=== PATIENT | female | born 1955 | race Caucasian/White ===

== ENCOUNTER → 2016-12-19 | Outpatient (CLI) | payer BC ==
[~2016-12-19] MED LIST: AMLO-114 PO; AMLO2.5T PO; ASPI81TA28 PO; ATOR-54 PO; CHOL1TAB2 PO; CHOLCAP5 PO; CLR10 PO; CPR500 PO; ERYOPO OPR; ESCI1TAB9 PO; LEVO75TA PO; LPT/20 PO; LXP10 PO; METO25TA3 PO; NAPR375T3 PO; OMEG10007 PO; OXYC5TAB PO; PANT40TA PO; PRT/40 PO; SNG10 PO; SYN75 PO
== END | disposition home or self-care (01) ==
LOC: C.LABBFT 12:21
PROVIDERS: ATTEND Internal Medicine
DX: E78.00 Pure hypercholesterolemia, unspecified (principal)

== ENCOUNTER → 2017-01-16 | Outpatient (CLI) | payer BC ==
[~2017-01-16] MED LIST changes: +LORA10CA10 PO; +NAPR-1221 PO; -NAPR375T3 PO; +PANT40TA2 PO; -PRT/40 PO
--- NOTE | 2017-01-16 09:16 | DIAGNOSTIC IMAGING REPORT ---
RIGHT KNEE 1 OR 2 VIEWS ROUTINE CLINICAL HISTORY: Right knee pain COMPARISON: None. DISCUSSION: The bones are mildly osteopenic. No fractures or dislocations are visualized. There are no erosive or destructive changes. The joint spaces appear relatively well preserved for age. IMPRESSION: No fractures or destructive lesions are visualized. Electronically signed by: Surya Bearden M.D. 01/16/2017 9:14 AM Dictated Date/Time: 01/16/2017 9:14 AM
== END | disposition home or self-care (01) ==
LOC: C.RAD1850 08:54
PROVIDERS: ATTEND Nurse Practitioner
DX: M25.561 Pain in right knee (principal)

== ENCOUNTER 2017-02-13 17:26 | Emergency (ER) | payer BC ==
[~2017-02-13] VITALS: Ht 152.4 cm; Wt 61.4 kg
[~2017-02-13 17:26] MED LIST changes: -AMLO-114 PO; -CHOLCAP5 PO; -ERYOPO OPR; -LORA10CA10 PO; -LPT/20 PO; -LXP10 PO; -METO25TA3 PO; -NAPR-1221 PO; -OMEG10007 PO; -PANT40TA2 PO; -SNG10 PO; -SYN75 PO
[2017-02-13 17:30] VITALS: TEMP 36.8; Ht 152.4 cm; Wt 61.4 kg
[2017-02-13] MEDS ORDERED: PANT40TA2 PO (18:05)
[2017-02-13] MEDS ORDERED: METO25TA3 PO (18:05)
[2017-02-13] MEDS ORDERED: NAPR-1221 PO (18:05)
[2017-02-13] MEDS ORDERED: SNG10 PO (18:05)
[2017-02-13] MEDS ORDERED: SYN75 PO (18:05)
[2017-02-13] MEDS ORDERED: LXP10 PO (18:05)
[2017-02-13] MEDS ORDERED: LPT/20 PO (18:07)
[2017-02-13] MEDS ORDERED: CHOLCAP5 PO (18:07)
--- NOTE | 2017-02-13 18:11 | EMERGENCY ROOM VISIT NOTE ---
ED Visit Note First contact with patient: 17:38 CHIEF COMPLAINT: Bilateral red, irritated eye HISTORY OF PRESENT ILLNESS: This 61-year-old female presents to the emergency department with complaining of redness in the bilateral eyes which has been ongoing for several weeks. Mild constant irritation, itching, denies pain. There is watery and sticky discharge from both eyes and the lids are crusted in the morning. Slight blurring of vision that clears with blinking. The patient wears corrective lenses but does not wear contacts. There is no known trauma to the eye. The patient has chronic allergy symptoms of nasal congestion, runny nose, sneezing, scratchy throat. The symptoms have been worse over the past month. The patient does not have a foreign body sensation. No headache, rash, nausea or vomiting. REVIEW OF SYSTEMS: A 6 system review of systems was completed with positives and pertinent negatives in the HPI. PHYSICAL EXAM: Vital Signs: Reviewed Nurse's notes, Temperature within normal limits. GENERAL: Awake and alert, in no acute distress, well-developed, well- nurished. SKIN: Warm, dry. No cyanosis. No petechia. EYES: Both pupils are equal round and reactive to light and accomadation, EOMs intact. There is watery discharge in the both eyes and moderate injection. There is no foreign body of the eyelid with lid eversion. Fundoscopic exam reveals no hemorrages, papiledema, or other abnormalities. No foreign body on the cornea, no hyphema. There is uptake of flourescein visible with UV light to the right cornea at approximately 7:00 just below the iris, consistent with corneal abrasion. No corneal ulcer. Visual Accuity is 20/40 right and 20/25 left with correction. EMERGENCY DEPARTMENT COURSE: I examined the patient. A funduscopic and wood's lamp exam was performed and is as described above. 1 inch of erythromycin ointment placed in the right eye and the patient was instructed as noted below. The patient was discharged home in good condition. DIAGNOSIS: Acute on chronic bilateral allergic conjunctivitis with right corneal abrasion Problem List Medical Problems: (1) Foot fracture, right Status: Resolved (2) HTN (hypertension) Status: Chronic Surgical Problems: (1) Previous section Status: Resolved Current/Historical Medications Scheduled Aspirin (Aspirin Ec), 81 MG PO HS Atorvastatin (Atorvastatin Calcium), 20 MG PO HS Cholecalciferol (Vitamin D3), 5,000 INTER.UNIT PO HS Erythromycin Opth (Erythromycin Opth), 1 INCH OPR Q2H Escitalopram Oxalate (Escitalopram Oxalate), 10 MG PO HS Levothyroxine Sodium (Synthroid), 75 MG PO HS Metoprolol Succinate (Toprol Xl), 25 MG PO HS Montelukast Sod (Montelukast Sodium), 10 MG PO HS Pantoprazole (Pantoprazole Sodium), 40 MG PO HS Scheduled PRN Naproxen (Naproxen), 375 MG PO BID PRN for Pain Allergies Coded Allergies: Penicillins (Verified Allergy, Intermediate, ANAPHYLAXIS, 10/10/15) Vital Signs Date Time Temp Pulse Resp B/P Pulse Ox O2 Delivery O2 Flow Rate FiO2 02/13/17 19:05 67 18 215/100 98 02/13/17 17:30 36.8 72 20 210/97 98 Room Air Departure Information Impression Primary Impression: Allergic conjunctivitis, bilateral Additional Impression: Corneal abrasion, right Dispostion Home / Self-Care Condition GOOD Prescriptions Erythromycin Opth (ERYTHROMYCIN OPTH) 12 Appln/3.5 Gm Oint 1 INCH OPR Q2H for 7 Days, #1 TUBE Prov: Gogo Veronica CRNP 02/13/17 Referrals Jose Lewis M.D. (PCP) Patient Instructions ED Allergic Conjunctivitis, ED Eye Injury Corneal Abrasion, [facility] Additional Instructions You have been treated in the Emergency Department today for your Corneal Abrasion. You have been prescribed Erythromycin Opthalmic ointment. This is an antibiotic ointment which will help prevent an infection from developing in your affected eye. You should apply a 1 cm ribbon of the ointment to the lower part of the affected eye up to 6 times per day for the next 7 days. DO NOT rub your eyes, as this can increase irritation and and risk of scratching your cornea again. You can use cool compresses to your eyes for comfort as much as needed. For pain control, you can use the following efki-bln-[id number] medicines (if >12 yo): - Regular strength (325mg/tab) Tylenol (acetaminophen) 2 tabs every 4-6 hours as needed. Do not exceed 12 tablets in a 24 hour period. Avoid taking more than 4 grams (4000 mg) of Tylenol per day. This includes any other sources of acetaminophen you may take on a regular basis. - Regular strength (200 mg/tab) Advil (ibuprofen) 1-2 tabs every 4-6 hours as needed. Do not exceed a dose of 3200 mg per day. You should relax in a quiet, dark place for the rest of the day. You should wear sunglasses while outside for the next few days until your eyes are not as sensitive to the light. You should continue using the eyedrops prescribed by your PCP to help manage your allergy symptoms. You should schedule a follow-up appointment in 2-3 days with your Primary Care Provider or established Eye Doctor (General Clerk) for further evaluation and treatment of your Corneal Abrasion. Return to the Emergency Department if your current symptoms worsen despite treatment course outlined above, or if you develop any of the following symptoms : intractable pain, visual disturbances, loss of vision, increased redness, swelling, drainage, or if you develop a fever. Problem Qualifiers Additional Impression: Corneal abrasion, right Encounter type: initial encounter Qualified Codes: S05.01XA - Injury of conjunctiva and corneal abrasion without foreign body, right eye, initial encounter
[2017-02-13] MEDS ORDERED: ERYTHROMYCIN OP OINT 1 GM PKT OP SCH (19:00)
[2017-02-13 19:05] VITALS: BP 215/100; PULSE 67; O2SAT 98
[2017-02-13] MEDS ORDERED: ERYOPO OPR (19:29)
[2017-05-30] MEDS ORDERED: OMEG10007 PO (07:44)
[2017-05-30] MEDS ORDERED: AMLO-114 PO (07:44)
[2017-08-30] MEDS ORDERED: LORA10CA10 PO (13:30)
== END 2017-02-13 19:32 | disposition home or self-care (01) ==
LOC: C.EDB 17:29 → C.EDD 19:32
DX: H10.13 Acute atopic conjunctivitis, bilateral (principal); S05.01XA Injury of conjunctiva and corneal abrasion without foreign body, right eye, initial encounter; X58.XXXA Exposure to other specified factors, initial encounter; I10 Essential (primary) hypertension; Z79.82 Long term (current) use of aspirin; Z79.899 Other long term (current) drug therapy

== ENCOUNTER → 2017-04-05 | Outpatient (CLI) | payer BC ==
[~2017-04-05] MED LIST changes: +AMLO-114 PO; -AMLO2.5T PO; -ATOR-54 PO; -CHOL1TAB2 PO; +CHOLCAP5 PO; -CLR10 PO; -CPR500 PO; +ERYOPO OPR; -ESCI1TAB9 PO; -LEVO75TA PO; +LORA10CA10 PO; +LPT/20 PO; +LXP10 PO; +METO25TA3 PO; +NAPR-1221 PO; +OMEG10007 PO; -OXYC5TAB PO; -PANT40TA PO; +PANT40TA2 PO; +SNG10 PO; +SYN75 PO
== END ==
LOC: C.PAPS 08:15
PROVIDERS: ATTEND Physician Assistant
DX: Z01.419 Encounter for gynecological examination (general) (routine) without abnormal findings (principal)

== ENCOUNTER → 2017-05-30 | Day surgery (SDC) | payer BC ==
[~2017-05-30] VITALS: Ht 152.4 cm; Wt 61.4 kg
[~2017-05-30] MED LIST changes: +ATROPINE SULFATE 0.1 MG/ML 5ML SYR IV PRN; +DEXAMETHASONE SOD INJ 4 MG/ML VIAL ONE; +FENTANYL CITRATE INJ 50 MCG/1 ML 2 ML VIAL IV PRN; +FENTANYL CITRATE INJ 50 MCG/1 ML 2 ML VIAL ONE; +IBUPROFEN 600 MG TAB PO PRN; +KETOROLAC TROMETHAMINE 30 MG/ML VIAL IV. PRN; +LABETALOL HCL IV 5 MG/ML 20ML IV PRN; +LACTATED RINGER'S 1000ML 1,000 ML IV SCH; +LIDOCAINE HCL 2% 2 ML VIAL (20MG/ML) ONE; -LORA10CA10 PO; +METOCLOPRAMIDE HCL INJ 5 MG/ML 2 ML VIAL IV PRN; +MIDAZOLAM HCL 1 MG/ML 2ML VIAL ONE; -NAPR-1221 PO; +NAPR375T3 PO; +ONDANSETRON INJ 2 MG/ML 2 ML VIAL IV PRN; +ONDANSETRON INJ 2 MG/ML 2 ML VIAL ONE; +OXYCODONE/ACETAMINOPHEN 5-325 TAB PO PRN; -PANT40TA2 PO; +PROPOFOL IV EMULSION 10 MG/ML 20 ML VIAL IV ONE; +PRT/40 PO; +SODIUM CHLORIDE 0.9% 1000ML 1,000 ML IV SCH
[2017-05-30 07:44] VITALS: Ht 152.4 cm; Wt 61.4 kg
--- NOTE | 2017-05-30 12:58 | History & Physical Bridge - SC ---
H&P Re-Evaluation Bridge Note: I have examined the patient, reviewed the History & Physical and in the interval since the performance of the History & Physical I have noted the following changes of clinical significance: No changes noted
--- NOTE | 2017-05-30 13:47 | Discharge Instructions-SurgCtr ---
Discharge Instructions Date of Service May 30, 2017. Visit Reason for Visit: Endometrial Polyp Discharge Discharge Diagnosis / Problem: D&C Hysteroscopy Polypectomy Discharge Goals Goal(s): Specific goals Activity Recommendations Activity Limitations: per Instructions/Follow-up section Anesthesia . Post Anesthesia Instructions: If you have had General Anesthesia or IV Sedation: * Do not drive today. * Resume driving when surgeon permits. * Do not make important decisions or sign legal documents today. * Call surgeon for: 1. Temperature elevations greater than 101 degrees F. 2. Uncontrollable pain. 3. Excessive bleeding. 4. Persistent nausea and vomiting. 5. Medication intolerance (nausea, vomiting or rash). * For nausea and vomiting use only clear liquids such as: tea, soda, bouillon until nausea subsides, then gradually increase diet as tolerated. * If you have any concerns or questions, call your surgeon's office. If physician is unavailable and it is an emergency, call 911 or go to the nearest emergency room. . Instructions / Follow-Up Instructions / Follow-Up ACTIVITY RECOMMENDATIONS: * Avoid tampons, douching, hot tubs, pools, and intercourse until bleeding has stopped. * May shower as usual. * No strenuous activity for 24-48 hours. After 24-48 hours, you may do anything you feel like doing (driving and sports are okay). SPECIAL CARE INSTRUCTIONS: Special Diet: * Mild nausea may occur in the immediate post-operative period. * Take clear liquids such as tea, cola or bouillon until all nausea has subsided; you may then resume your normal diet. Special Care: * Light bleeding and vaginal spotting can last from a few days to 3-4 weeks. Call your doctor if bleeding becomes heavier than the heaviest part of your period. * Check your temperature twice a day for one week. If it goes above 100.4 degrees Fahrenheit (38.0 Celsius), notify your doctor. * Call your doctor's office for an appointment for 6 weeks after your surgery. FOLLOW-UP VISIT: Call your doctor's office for an appointment for 6 weeks after your surgery. Diet Recommendations Home Diet: resume previous diet Procedures Procedures Performed: Dilatation And Curettage, Hysteroscopy, Polypectomy Pending Studies Studies pending at discharge: no Medical Emergencies . Who to Call and When: Medical Emergencies: If at any time you feel your situation is an emergency, please call 911 immediately. . Non-Emergent Contact Non-Emergency issues call your: Primary Care Provider . . "Provider Documentation" section prepared by Joanie Perrin. .
--- NOTE | 2017-05-30 14:42 | Anesthesia Progress Nt - [facility] ---
Anesthesia Post Op Note Date & Time May 30, 2017 at 14:42 Vital Signs Pain Intensity: 0 Vital Signs Past 12 Hours Date Time Temp Pulse Resp B/P (MAP) Pulse Ox O2 Delivery O2 Flow Rate FiO2 05/30/17 14:36 57 16 05/30/17 14:36 56 16 92 05/30/17 14:35 133/75 05/30/17 14:31 60 12 05/30/17 14:31 60 12 99 05/30/17 14:30 145/88 05/30/17 14:30 36.4 59 12 145/88 99 Room Air 05/30/17 14:26 55 10 97 05/30/17 14:26 55 10 05/30/17 14:25 156/82 05/30/17 14:24 57 13 97 05/30/17 14:24 57 13 05/30/17 14:20 145/69 05/30/17 14:19 55 12 97 05/30/17 14:19 55 12 05/30/17 14:15 136/73 05/30/17 14:14 54 10 98 05/30/17 14:14 55 10 05/30/17 14:10 129/69 05/30/17 14:09 55 10 96 05/30/17 14:09 55 10 05/30/17 14:08 55 11 96 05/30/17 14:08 55 11 05/30/17 14:05 138/70 05/30/17 14:03 57 11 05/30/17 14:03 57 11 95 05/30/17 14:00 140/75 05/30/17 13:58 59 12 95 05/30/17 13:58 58 12 05/30/17 13:55 179/82 05/30/17 13:54 164/113 05/30/17 13:53 56 98 05/30/17 13:53 56 05/30/17 13:53 36.0 58 12 179/82 97 Diffusion Mask 6 05/30/17 12:05 36.3 53 16 135/83 (100) 98 Room Air Notes Mental Status: alert / awake / arousable, participated in evaluation Pt Amnestic to Procedure: Yes Nausea / Vomiting: adequately controlled Pain: adequately controlled Airway Patency, RR, SpO2: stable & adequate BP & HR: stable & adequate Hydration State: stable & adequate Anesthetic Complications: no major complications apparent
[2017-05-30 14:45] VITALS: TEMP 36.8
--- NOTE | 2017-05-30 15:00 | OPERATIVE REPORT ---
DATE OF OPERATION: 05/30/2017 PREOPERATIVE DIAGNOSIS: Thickened endometrium, incidental finding. POSTOPERATIVE DIAGNOSIS: Likely polyp. PROCEDURE: D&C, hysteroscopy with polypectomy. SURGEON: Dr. Joanie Perrin. CUT FILE CLERK: None. ESTIMATED BLOOD LOSS: 10 mL. COMPLICATIONS: None. DISPOSITION: Stable to recovery. DESCRIPTION OF PROCEDURE: Nora is a 62-year-old female who had a thickened endometrium identified as an incidental finding on imaging being done for other reasons. She was counseled on her options and elected for a D&C hysteroscopy to both sample and to remove the lining. She was placed on the table in the dorsal lithotomy position with candy-cane stirrups, prepped and draped in standard sterile fashion and a hard time-out was taken prior to proceeding. The bladder was emptied of urine via straight catheterization. Weighted and Zamora speculum were then placed and the cervix was identified. It was noted to be very petite, but normal in appearance. The cervix was serially dilated to allow passage of a 5-mm hysteroscope, which was then gently introduced to the fundus. Ostia were seen bilaterally and the cavity was essentially normal; however, at the lower uterine segment on the posterior wall, there was a polypoid structure that had a somewhat yellowish and calcified appearance with some blood vessels coursing through it. The scope was then withdrawn. Sharp curettage was carried out on all villalobos of the uterus. Minimal endometrial curettings were retrieved. The scope was reintroduced and the aforementioned posteriorly-arising polypoid mass was seen to be detached and bouncing around freely within the endometrial cavity in the hysteroscopic fluid. The scope was then removed and polyp forceps were used to grasp and retrieve this, which was sent as a separate specimen labeled polyp. The scope was then reintroduced and the cavity both endometrial and endocervical was seen to be smooth and clean. The procedure was then brought to completion with all instruments being removed and the patient was transferred in stable condition to the recovery room. I attest to the content of the Intraoperative Record and any orders documented therein. Any exceptions are noted below. [facility]
[2017-05-30 15:14] VITALS: BP 128/74; PULSE 51; O2SAT 95
== END | disposition home or self-care (01) ==
LOC: X.SURG 11:32
PROVIDERS: ATTEND Obstetrics & Gynecology
DX: N84.0 Polyp of corpus uteri (principal); F32.9 Major depressive disorder, single episode, unspecified; K21.9 Gastro-esophageal reflux disease without esophagitis; E78.00 Pure hypercholesterolemia, unspecified; I10 Essential (primary) hypertension; E03.9 Hypothyroidism, unspecified; M81.0 Age-related osteoporosis without current pathological fracture; M19.90 Unspecified osteoarthritis, unspecified site; Z82.49 Family history of ischemic heart disease and other diseases of the circulatory system

== ENCOUNTER → 2017-06-12 | Outpatient (CLI) | payer BC ==
[~2017-06-12] MED LIST changes: -ATROPINE SULFATE 0.1 MG/ML 5ML SYR IV PRN; -DEXAMETHASONE SOD INJ 4 MG/ML VIAL ONE; -ERYOPO OPR; -FENTANYL CITRATE INJ 50 MCG/1 ML 2 ML VIAL IV PRN; -FENTANYL CITRATE INJ 50 MCG/1 ML 2 ML VIAL ONE; -IBUPROFEN 600 MG TAB PO PRN; -KETOROLAC TROMETHAMINE 30 MG/ML VIAL IV. PRN; -LABETALOL HCL IV 5 MG/ML 20ML IV PRN; -LACTATED RINGER'S 1000ML 1,000 ML IV SCH; -LIDOCAINE HCL 2% 2 ML VIAL (20MG/ML) ONE; -METOCLOPRAMIDE HCL INJ 5 MG/ML 2 ML VIAL IV PRN; -MIDAZOLAM HCL 1 MG/ML 2ML VIAL ONE; -ONDANSETRON INJ 2 MG/ML 2 ML VIAL IV PRN; -ONDANSETRON INJ 2 MG/ML 2 ML VIAL ONE; -OXYCODONE/ACETAMINOPHEN 5-325 TAB PO PRN; -PROPOFOL IV EMULSION 10 MG/ML 20 ML VIAL IV ONE; -SODIUM CHLORIDE 0.9% 1000ML 1,000 ML IV SCH
--- NOTE | 2017-06-12 14:20 | DIAGNOSTIC IMAGING REPORT ---
LEFT FINGER(S) MIN 2 VIEWS ROUTINE HISTORY: 62 years-old Female L08.9 Infected finger with concern for possible osteomyelitis. COMPARISON: None available TECHNIQUE: 3 views of the fingers with attention to the left third fourth digit. FINDINGS: The bones are moderately demineralized. Mild degenerative changes are seen within the metacarpal phalangeal and interphalangeal joints. No acute fracture, dislocation or erosive changes are identified. Negative for opaque foreign body. There is mild soft tissue swelling of the fourth digit. IMPRESSION: 1. Mild soft tissue swelling of the fourth digit without acute bony abnormality. No erosive changes to suggest acute osteomyelitis. If of further clinical concern, a follow-up MRI may be considered. 2. Background osteopenia. The above report was generated using voice recognition software. It may contain grammatical, syntax or spelling errors. Electronically signed by: Felice Rogers M.D. 06/12/2017 2:19 PM Dictated Date/Time: 06/12/2017 2:16 PM
== END | disposition home or self-care (01) ==
LOC: C.RAD1850 14:06
PROVIDERS: ATTEND Nurse Practitioner
DX: L08.9 Local infection of the skin and subcutaneous tissue, unspecified (principal); M85.80 Other specified disorders of bone density and structure, unspecified site

== ENCOUNTER → 2017-07-09 | Outpatient (CLI) | payer BC ==
[2017-07-09 17:44] LABS: BLOOD UREA NITROGEN 13 mg/dl (7-18); BUN/CREATININE RATIO 15.8 (10-20); GLUCOSE 107 mg/dl (70-99)
[2017-07-09 17:45] LABS: ALT/SGPT 22 U/L (12-78); AST/SGOT 16 U/L (15-37); CALCIUM 8.6 mg/dl (8.5-10.1); CARBON DIOXIDE 25 mmol/L (21-32); CHLORIDE 110 mmol/L (98-107); POTASSIUM 3.2 mmol/L (3.5-5.1); SODIUM 144 mmol/L (136-145)
[2017-07-09 17:56] LABS: ALB/GLOB RATIO 1.2 (0.9-2); ALKALINE PHOSPHATASE 99 U/L (45-117); CHOLESTEROL 185 mg/dl (0-200); CHOLESTEROL/HDL RATIO 3.9; HDL CHOLESTEROL 47 mg/dl; LDL CHOLESTEROL CALCULATED 105 mg/dl; TRIGLYCERIDES 163 mg/dl (0-150); VERY LOW DENSITY LIPOPROT CALC 33 mg/dl
== END | disposition home or self-care (01) ==
LOC: C.LABBFT 12:09
PROVIDERS: ATTEND Physician Assistant Medical
DX: E78.00 Pure hypercholesterolemia, unspecified (principal); E03.9 Hypothyroidism, unspecified

== ENCOUNTER → 2017-07-16 | Outpatient (CLI) | payer BC ==
[~2017-07-16] MED LIST changes: +GADAVIST IV PRN
--- NOTE | 2017-07-16 13:15 | DIAGNOSTIC IMAGING REPORT ---
L UPPER EXT NONJOINT COMBO CLINICAL HISTORY: 62 years-old Female presenting with infected fourth digit. TECHNIQUE: Multisequence, multiplanar MR imaging of the left fingers was performed before and after the administration of intravenous contrast. IV contrast: 6.2 mL of Gadavist. COMPARISON: Correlation made to plain radiographs of the left fingers from 06/12/2017. FINDINGS: Localizer images: Unremarkable. T2 hyperintense, T1 hypointense signal intensity along the base of the distal phalanx of the fourth finger. Postcontrast imaging demonstrates intramedullary enhancement. The adjacent distal interphalangeal joint does not demonstrate increased fluid. No bony edema in the head of the middle phalanx of the fourth finger the adjacent tendons and ligamentous structures are intact. Remaining structures of the hand are within normal limits. IMPRESSION: Findings consistent with osteomyelitis at the base of the distal phalanx of the fourth finger. No convincing evidence of septic arthritis of the distal interphalangeal joint at this time. Electronically signed by: Jack Peters M.D. 07/16/2017 1:14 PM Dictated Date/Time: 07/16/2017 1:10 PM
== END | disposition home or self-care (01) ==
LOC: C.MRI 10:59
PROVIDERS: ATTEND Physician Assistant Medical
DX: L08.9 Local infection of the skin and subcutaneous tissue, unspecified (principal); R93.7 Abnormal findings on diagnostic imaging of other parts of musculoskeletal system

== ENCOUNTER → 2017-08-31 | Day surgery (SDC) | payer BC ==
[2017-08-17 14:56] VITALS: BMI 26.0
[2017-08-30 13:32] VITALS: Ht 152.4 cm; Wt 61.4 kg
[~2017-08-31] VITALS: Ht 152.4 cm; Wt 61.4 kg
[~2017-08-31] MED LIST changes: +ATROPINE SULFATE 0.1 MG/ML 5ML SYR IV PRN; +EpHEDrine SULFATE INJ 50 MG/ML AMP IV PRN; -GADAVIST IV PRN; +LIDOCAINE HCL 2% 2 ML VIAL (20MG/ML) ONE; +LORA10CA10 PO; +MIDAZOLAM HCL 1 MG/ML 2ML VIAL ONE; -NAPR375T3 PO; -OMEG10007 PO; +ONDANSETRON INJ 2 MG/ML 2 ML VIAL ONE; +PANT40TA2 PO; +PROPOFOL IV EMULSION 10 MG/ML 20 ML VIAL IV ONE; -PRT/40 PO; -SNG10 PO; +SODIUM CHLORIDE 0.9% 500ML 500 ML IV ONE
--- NOTE | 2017-08-31 15:26 | Endo History and Physical ---
History & Physical Date of Service: Aug 31, 2017. Chief Complaint: Screening Referring Physician: Jose Lewis History of Present Illness screening colon Past Medical History Fractures, Syncopal Episodes, Hypertension, Thyroid Disease Past Surgical History Hx Cardiac Surgery: No Hx Internal Defibrillator: No Hx Pacemaker: No Hx Abdominal Surgery: Yes ( X 2, D&C) Hx of Implantable Prosthesis: No Hx Post-Op Nausea and Vomiting: No Hx Cancer Surgery: No Hx Thoracic Surgery: No Hx Orthopedic: Yes (REPAIR OF FX RIGHT FOOT) Hx Urinary Tract Surgery: No Family History None Social History Smoking Status: Never Smoker Hx Substance Use: No Hx Alcohol Use: Yes (RARELY) Allergies Coded Allergies: Penicillins (Verified Allergy, Intermediate, INCREASED FEELING SICK, ) Current Medications Reported Home Medications Medications Dose Route/Sig Max Daily Dose Days Date Category Loratadine 10 Mg Cap 1 Cap PO QAM 08/30/17 Reported Norvasc (Amlodipine Besylate) 10 Mg Tab 5 Mg PO HS 05/30/17 Reported Atorvastatin Calcium (Atorvastatin) 20 Mg Tab 20 Mg PO HS 02/13/17 Reported Vitamin D3 (Cholecalciferol) 5,000 Unit Cap 5,000 Inter.unit PO HS 02/13/17 Reported Escitalopram Oxalate 10 Mg Tab 10 Mg PO HS 02/13/17 Reported Toprol Xl (Metoprolol Succinate) 25 Mg Tabcr 25 Mg PO HS 02/13/17 Reported Pantoprazole Sodium (Pantoprazole) 40 Mg Tab 40 Mg PO HS 02/13/17 Reported Synthroid (Levothyroxine Sodium) 75 Mcg Tab 75 Mg PO HS 02/13/17 Reported Aspirin Ec (Aspirin) 81 Mg Tab 81 Mg PO HS 10/10/15 Reported Vital Signs Weight (Kilograms): 61.36 Height (Feet): 5 Height (Inches): 0 Date Time Temp Pulse Resp B/P (MAP) Pulse Ox O2 Delivery O2 Flow Rate FiO2 08/31/17 13:21 36.5 59 18 176/85 (115) 98 Room Air Physical Exam General Appearance: WD/WN, no apparent distress Respiratory/Chest: Auscultation: breath sounds normal Cardiovascular: Heart Auscultation: RRR Abdomen: Bowel Sounds: normal Inspection & Palpation: soft, non-distended, no tenderness, guarding & rebound Assessment and Plan screening colon; no FH of CRC consent obtained
--- NOTE | 2017-08-31 16:04 | Discharge Instructions ---
Endoscopy Patient Instructions Date / Procedure(s) Performed Aug 31, 2017. Colonoscopy Allergy Information Coded Allergies: Penicillins (Verified Allergy, Intermediate, INCREASED FEELING SICK, ) Discharge Date / Findings Aug 31, 2017. normal colon/ melanosis coli Medication Instructions Restart Stopped Medication(s): Reported Home Medications Medications Dose Route/Sig Max Daily Dose Days Date Category Loratadine 10 Mg Cap 1 Cap PO QAM 08/30/17 Reported Norvasc (Amlodipine Besylate) 10 Mg Tab 5 Mg PO HS 05/30/17 Reported Atorvastatin Calcium (Atorvastatin) 20 Mg Tab 20 Mg PO HS 02/13/17 Reported Vitamin D3 (Cholecalciferol) 5,000 Unit Cap 5,000 Inter.unit PO HS 02/13/17 Reported Escitalopram Oxalate 10 Mg Tab 10 Mg PO HS 02/13/17 Reported Toprol Xl (Metoprolol Succinate) 25 Mg Tabcr 25 Mg PO HS 02/13/17 Reported Pantoprazole Sodium (Pantoprazole) 40 Mg Tab 40 Mg PO HS 02/13/17 Reported Synthroid (Levothyroxine Sodium) 75 Mcg Tab 75 Mg PO HS 02/13/17 Reported Aspirin Ec (Aspirin) 81 Mg Tab 81 Mg PO HS 10/10/15 Reported Reported Home Medications Medications Dose Route/Sig Max Daily Dose Days Date Category Loratadine 10 Mg Cap 1 Cap PO QAM 08/30/17 Reported Norvasc (Amlodipine Besylate) 10 Mg Tab 5 Mg PO HS 05/30/17 Reported Atorvastatin Calcium (Atorvastatin) 20 Mg Tab 20 Mg PO HS 02/13/17 Reported Vitamin D3 (Cholecalciferol) 5,000 Unit Cap 5,000 Inter.unit PO HS 02/13/17 Reported Escitalopram Oxalate 10 Mg Tab 10 Mg PO HS 02/13/17 Reported Toprol Xl (Metoprolol Succinate) 25 Mg Tabcr 25 Mg PO HS 02/13/17 Reported Pantoprazole Sodium (Pantoprazole) 40 Mg Tab 40 Mg PO HS 02/13/17 Reported Synthroid (Levothyroxine Sodium) 75 Mcg Tab 75 Mg PO HS 02/13/17 Reported Aspirin Ec (Aspirin) 81 Mg Tab 81 Mg PO HS 10/10/15 Reported Provider Instructions Activity Restrictions - No exercising or heavy lifting for 24 hours. - Do not drink alcohol the day of the procedure. - Do not drive a car or operate machinery until the day after the procedure. - Do not make any important decisions or sign important papers in 24 hours after the procedure. Following Day: - Return to full activity which may include returning to work/school. Diet Start your diet with liquids and light foods (jello, soup, juice, toast). Then eat your usual diet if not nauseated. Treatment For Common After Affects For mild abdominal pain, bloating, or excessive gas: - Rest - Eat lightly - Lie on right side Follow-Up Information Follow-up with Jose Lewis as scheduled Anesthesia Information What You Should Know You have had a procedure that required some medicine to reduce anxiety and discomfort. This treatment is called moderate sedation. After receiving the treatment, you may be sleepy, but you will be able to breathe on your own. The effects of the treatment may last for several hours. Follow these instructions along with Activity/Diet recommendations noted above: * Do NOT do anything where dizziness or clumsiness would be dangerous. * Rest quietly at home today, then you can be up and about tomorrow. * Have a responsible person stay with you the rest of today. * You may have had an I.V. today. If so, you may take the dressing off later today. Recommendations Call your doctor if: * Trouble breathing * Continuous vomiting for more than 24 hours * Temperature above 101 degrees * Severe abdominal pain or bloating * Pain not relieved by pain medicine ordered * There is increased drainage or redness from any incision * A large amount of rectal bleeding greater than 2-3 tablespoons. (If you had a polyp/s removed or have hemorrhoids, a small amount of blood - from the rectum is to be expected.) * You have any unanswered questions or concerns. IN THE EVENT OF A SERIOUS EMERGENCY, GO TO THE NEAREST EMERGENCY ROOM Your discharge instructions were prepared by provider Rolf Dickerson. Patient Instructions Signature Page Nora Keita Patient (or Guardian) Signature/Date: I have read and understand the instructions given to me by my caregivers. Caregiver/RN/Doctor Signature/Date: The above-named patient and/or guardian has received patient instructions on this date. + Original Patient Signature Page (only) stays with chart. Please make copy for patient.
--- NOTE | 2017-08-31 16:07 | GI REPORT ---
Procedure Date: 08/31/2017 3:30 PM Procedure: Colonoscopy Indications: Screening for colorectal malignant neoplasm Medicines: Propofol per Anesthesia Complications: No immediate complications. Estimated blood loss: None. Estimated Blood Loss: Estimated blood loss: none. Procedure: Pre-Anesthesia Assessment: - Prior to the procedure, a History and Physical was performed, and patient medications and allergies were reviewed. The patient's tolerance of previous anesthesia was also reviewed. The risks and benefits of the procedure and the sedation options and risks were discussed with the patient. All questions were answered, and informed consent was obtained. Prior Anticoagulants: The patient has taken no previous anticoagulant or antiplatelet agents. ASA Grade Assessment: III - A patient with severe systemic disease. After reviewing the risks and benefits, the patient was deemed in satisfactory condition to undergo the procedure. After I obtained informed consent, the scope was passed under direct vision. Throughout the procedure, the patient's blood pressure, pulse, and oxygen saturations were monitored continuously. The scope was introduced through the anus and advanced to the terminal ileum, with identification of the appendiceal orifice and IC valve. The colonoscopy was performed without difficulty. The patient tolerated the procedure well. The quality of the bowel preparation was good. Findings: The perianal and digital rectal examinations were normal. Pertinent negatives include normal sphincter tone, no palpable rectal lesions and no anal lesion or abnormality was detected. A diffuse area of mild melanosis was found in the entire colon. The terminal ileum appeared normal. The retroflexed view of the distal rectum and anal verge was normal and showed no anal or rectal abnormalities. Impression: - Melanosis in the colon. - The examined portion of the ileum was normal. - The distal rectum and anal verge are normal on retroflexion view. - No specimens collected. Recommendation: - Discharge patient to home (ambulatory). - Resume regular diet. - Continue present medications. - Repeat colonoscopy in 10 years for screening purposes. - Return to referring physician as previously scheduled. MD Rolf Jefferson MD 08/31/2017 4:06:56 PM This report has been signed electronically. Note Initiated On: 08/31/2017 3:30 PM I attest to the content of the Intraoperative Record and orders documented therein, exceptions below
[2017-08-31 16:40] VITALS: BP 148/77; PULSE 59; O2SAT 97
--- NOTE | 2017-08-31 17:12 | Anesthesiology Progress Note ---
Anesthesia Post Op Note Date & Time Aug 31, 2017 at 17:12 Vital Signs Vital Signs Past 12 Hours Date Time Temp Pulse Resp B/P (MAP) Pulse Ox O2 Delivery O2 Flow Rate FiO2 08/31/17 16:40 59 20 148/77 (100) 97 Room Air 08/31/17 16:27 62 20 131/70 (90) 97 Room Air 08/31/17 16:10 56 20 104/51 (68) 97 Room Air 08/31/17 13:21 36.5 59 18 176/85 (115) 98 Room Air Notes Mental Status: alert / awake / arousable, participated in evaluation Pt Amnestic to Procedure: Yes Nausea / Vomiting: adequately controlled Pain: adequately controlled Airway Patency, RR, SpO2: stable & adequate BP & HR: stable & adequate Hydration State: stable & adequate Anesthetic Complications: no major complications apparent
== END | disposition home or self-care (01) ==
LOC: C.GI 12:59
PROVIDERS: ATTEND Internal Medicine Gastroenterology
DX: Z12.11 Encounter for screening for malignant neoplasm of colon (principal); K63.89 Other specified diseases of intestine; I10 Essential (primary) hypertension; E07.9 Disorder of thyroid, unspecified; Z79.82 Long term (current) use of aspirin; Z79.899 Other long term (current) drug therapy

== ENCOUNTER → 2017-09-14 | Outpatient (CLI) | payer BC ==
[~2017-09-14] MED LIST changes: -ATROPINE SULFATE 0.1 MG/ML 5ML SYR IV PRN; -EpHEDrine SULFATE INJ 50 MG/ML AMP IV PRN; -LIDOCAINE HCL 2% 2 ML VIAL (20MG/ML) ONE; -MIDAZOLAM HCL 1 MG/ML 2ML VIAL ONE; -ONDANSETRON INJ 2 MG/ML 2 ML VIAL ONE; -PROPOFOL IV EMULSION 10 MG/ML 20 ML VIAL IV ONE; -SODIUM CHLORIDE 0.9% 500ML 500 ML IV ONE
--- NOTE | 2017-09-14 15:50 | MAMMOGRAPHY REPORT ---
BILATERAL DIGITAL SCREENING MAMMOGRAM TOMOSYNTHESIS WITH CAD: 09/14/2017 CLINICAL HISTORY: Routine screening. TECHNIQUE: Breast tomosynthesis in addition to standard 2D mammography was performed. Current study was also evaluated with a Computer Aided Detection (CAD) system. COMPARISON: Comparison is made to exams dated: 07/09/2013 mammogram - [facility] an d 10/27/2008. BREAST COMPOSITION: There are scattered areas of fibroglandular density in both breasts. FINDINGS: No suspicious masses, calcifications, or areas of architectural distortion are noted in ei ther breast. There has been no significant interval change compared to prior exams. IMPRESSION: ACR BI-RADS CATEGORY 1: NEGATIVE There is no mammographic evidence of malignancy. A 1 year screening mammogram is recommended. The pa tient will receive written notification of the results. Approximately 10% of breast cancers are not detected with mammography. A negative mammographic report should not delay biopsy if a clinically suggestive mass is present. Tiki Dai M.D. ah/:09/14/2017 13:50:17 Brush Holder Inspector: Geni LYNN(R)(M), [facility] letter sent: Normal 1/2 BI-RADS Code: ACR BI-RADS Category 1: Negative
== END | disposition home or self-care (01) ==
LOC: C.MAMM 12:52
PROVIDERS: ATTEND Internal Medicine
DX: Z12.31 Encounter for screening mammogram for malignant neoplasm of breast (principal)